=== PATIENT | female | born 1980 | race Caucasian/White ===

== ENCOUNTER 2019-07-30 08:31 | Emergency (ER) | payer OTHER, SELFPAY ==
--- NOTE | ~2019-07-30 | XR_ITS ---
EXAMINATION: XR chest 2V DATE: 07/30/2019 08:54 INDICATION: Cough and fever. TECHNIQUE: Frontal and lateral views of the chest were obtained. COMPARISON: Chest 2 views 03/07/2015 FINDINGS: There are airspace opacities in left lower lobe, consistent with pneumonia. No pleural effu deon or pneumothorax. The heart size is normal. IMPRESSION: 1. Left lower lobe pneumonia. Reviewed, dictated and finalized at location A.
[2019-07-30 08:43] VITALS: BP 115/78; PULSE 91; RESP 18; TEMP 37; O2SAT 95
--- NOTE | 2019-07-30 09:01 | ED.URI ---
HPI - URI/Sore Throat General Chief Complaint: Upper Respiratory Infection Stated Complaint: ough/fever Time Seen by Provider: 07/30/19 08:46 Source: patient and RN notes reviewed Mode of arrival: ambulatory Limitations: no limitations History of Present Illness HPI Narrative: Patient presents today with a 12-day history of productive cough, shortness of breath with exertion, fever up to 101, sweats. Cough has been worsening since onset. Patient was tested for COVID-19 2 days ago and was negative. Her PCP told her that she likely had a virus and needed to wait it out. Denies cough, rhinorrhea, sore throat, ear pain, nausea, vomiting, headache. Denies any history of asthma or COPD. She has been taking Tylenol and ibuprofen with relief. She is a non-smoker. MD elicited complaint: fever and cough Related Data Home Medications Medication Instructions Recorded Confirmed sertraline [Zoloft] 75 mg PO DAILY 07/30/19 07/30/19 Allergies Allergy/AdvReac Type Severity Reaction Status Date / Time No Known Allergies Allergy Unverified 07/30/19 08:46 Review of Systems Review of Systems: Narrative: CONSTITUTIONAL: Denies body aches, chills. + Fever, sweats EYES: Denies visual changes, redness, or discharge. ENT: Denies rhinorrhea, congestion, sore throat, or otalgia. CARDIOVASCULAR: Denies chest pain, palpitations, or edema. RESPIRATORY: + Cough, shortness of breath with exertion GASTROINTESTINAL: Denies abdominal pain, nausea, vomiting, or diarrhea. GENITOURINARY: Denies dysuria or hematuria. SKIN: Denies rash, itching, or wounds. MUSCULOSKELETAL: Denies back pain, joint pain, or myalgia. NEUROLOGIC: Denies headache, numbness, tingling, or weakness. PSYCH: Denies depression or anxiety. [facility] Past Medical History Medical History (Updated 07/30/19 @ 09:05 by Belkys Bhatt, [facility], ) Anxiety Family History Family History (Updated 09/12/15 @ 23:21 by DOCTOR UNKNOWN) Mother Patient's mother is in good health Father Patient's father is in good health Cerebrovascular accident Family history of diabetes mellitus in first degree relative Hypertension Family history of transient ischemic attacks Sibling Patient's sister is in good health Grandparent Hypertension Diabetes mellitus Social History Social History Smoking status: Never smoker Alcohol intake: current Gender identity (if verbalized by the patient): Female Comments At time of signature, I have reviewed and agree with nursing past medical, surgical, social and family history unless otherwise noted. Please see nursing chart for further information. There is no relevant family history pertinent to the presenting complaint Exam Narrative: Exam Narrative: GENERAL: Well-appearing, well-nourished, and in no acute distress. HEAD: Normocephalic, atraumatic. EYES: EOMI. No redness or drainage. Conjunctivae normal. ENT: Mucous membranes pink and moist. Nares clear. No rhinorrhea. TMs normal bilaterally. Throat normal. Uvula midline. NECK: Normal AROM. Supple. No lymphadenopathy. CHEST: No respiratory distress. Crackles in the left lung. Diminished in the left lower lobe. Expiratory wheeze in the left lower lobe. HEART: Regular rate and rhythm. No murmur appreciated. Normal peripheral pulses. EXTREMITIES: Normal range of motion. No edema. SKIN: Warm, dry, no rash. Capillary refill normal. Normal skin turgor. NEURO: No focal deficits. Alert and oriented x3. Gait steady. PSYCH: Normal affect. No signs of depression or anxiety. Course Vital Signs Vital signs: Vital Signs Temperature 98.6 F 07/30/19 08:43 Pulse Rate 91 07/30/19 08:43 Respiratory Rate 18 07/30/19 08:43 Blood Pressure 115/78 07/30/19 08:43 Pulse Oximetry 95 07/30/19 08:43 Temperature 98.6 F 07/30/19 08:43 Pulse Rate 91 07/30/19 08:43 Respiratory Rate 18 07/30/19 08:43 Blood Pressure 115/78 07/30/19 08:43 Pulse Oximetry 95 06
== END 2019-07-30 09:12 | disposition home or self-care (01) ==
PROVIDERS: Emergency Provider Nurse Practitioner; PCP Family Medicine
DX: R05 Cough (principal); J18.9 Pneumonia, unspecified organism
CPT/HCPCS: 71046; 99213; G0463

== ENCOUNTER 2019-08-20 08:39 | Outpatient (CLI) | payer OTHER, SELFPAY ==
--- NOTE | ~2019-08-20 | XR_ITS ---
XR chest 2V DATE: 08/20/2019 09:06 INDICATION: Pneumonia TECHNIQUE: PA and lateral views COMPARISON: 07/29/2021 view chest FINDINGS: There is diminished but incompletely resolved left lower lobe infiltrate since 07/30/2019. Mild discoid atelectasis in the right lower lung. The remaining lung uriarte are clear. No pleural effusion or pulmonary vascular congestion or pneumoth orax. No hilar or mediastinal enlargement. Normal heart size. Mild levoscoliosis of the upper thoracic spine. IMPRESSION: Improvement but incomplete resolution of left lower lobe infiltrate since 07/30/2019 Reviewed, dictated and finalized at location B.
== END 2019-08-20 08:40 | disposition home or self-care (01) ==
LOC: ANHIMG 08:44
PROVIDERS: PCP Family Medicine; Visit Provider Family Medicine
DX: J18.9 Pneumonia, unspecified organism (principal); R91.8 Other nonspecific abnormal finding of lung field
CPT/HCPCS: 71046

== ENCOUNTER 2019-09-06 08:11 | Outpatient (CLI) | payer OTHER, SELFPAY ==
--- NOTE | ~2019-09-06 | XR_ITS ---
XR chest 2V DATE: 09/06/2019 08:22 INDICATION: Pneumonia follow-up TECHNIQUE: PA and lateral views COMPARISON: 08/20/2019 2 view chest FINDINGS: There is interval clearance of left lower lobe infiltrate since 08/20/2019 consistent with re solution of pneumonia. No pulmonary infiltrate or consolidation. No hilar or mediastinal enlargement. No pleural effusion or pulmonary vascular congestion or pneumoth orax. Normal heart size. Mild levoscoliosis of the upper thoracic spine and minimal dextroscoliosis of the lower thoracic spin e. IMPRESSION: Resolution of left lower lobe infiltrate; no active cardiopulmonary disease Reviewed, dictated and finalized at location B.
== END 2019-09-06 08:12 | disposition home or self-care (01) ==
PROVIDERS: PCP Family Medicine; Visit Provider Physician Assistant
DX: J18.9 Pneumonia, unspecified organism (principal)
CPT/HCPCS: 71046

== ENCOUNTER 2020-04-17 13:29 | Outpatient (CLI) | payer OTHER, SELFPAY | END 2020-04-17 13:30 | disposition home or self-care (01) | LOC: ANHCOVIDVC 13:29 | PROVIDERS: PCP Family Medicine | DX: Z23 Encounter for immunization (principal) | CPT/HCPCS: 0001A; 91300 ==

== ENCOUNTER 2020-05-08 13:28 | Outpatient (CLI) | payer OTHER, SELFPAY | END 2020-05-08 13:29 | disposition home or self-care (01) | LOC: ANHCOVIDVC 13:28 | PROVIDERS: PCP Family Medicine | DX: Z23 Encounter for immunization (principal) | CPT/HCPCS: 0002A; 91300 ==

== ENCOUNTER → 2021-06-19 12:34 | Outpatient (CLI) | payer OTHER, SELFPAY ==
--- NOTE | ~2021-06-19 | MM_ITS ---
EXAMINATION: MM screening jacy BI w swapna HISTORY: Screening mammogram TECHNIQUE: Craniocaudal and mediolateral oblique 3-D tomosynthesis images were obtained and synthetic 2-D images were generated. CAD analysis was submitted and interpreted. COMPARISON: No prior mammogram is available for comparison at this institution. BREAST PARENCHYMAL COMPOSITION: The breasts are extremely dense, which lowers the sensitivity of mamm ography. FINDINGS: There is no evidence of suspicious mass, calcification, or architectural distortion to sugg est malignancy in either breast. There has been no suspicious interval change. IMPRESSION: 1. No mammographic evidence of malignancy. 2. Recommend routine screening mammography in one year. BI-RADS Category 1: Negative Reviewed, dictated and finalized at location A.
== END ==
PROVIDERS: PCP Surgery Plastic and Reconstructive Surgery; Visit Provider Nurse Practitioner
DX: Z12.31 Encounter for screening mammogram for malignant neoplasm of breast (principal)
CPT/HCPCS: 77063; 77067

== ENCOUNTER 2021-09-22 00:03 | Day surgery (SDC) | payer OTHER, SELFPAY ==
[2021-09-14 16:35] VITALS: BMI 25.0
--- NOTE | 2021-09-14 16:58 | PC.NURSE ---
Report to the Outpatient Waiting Room, entrance under the green pavilion located off [facility], at time 0600 on date 09/22/21. OR Time: 0730. - You and your visitor will be asked a series of questions to screen for COVID 19 for your protection. - Only one visitor is allowed at this time. - The patient visitor is requested to leave or wait in car when not with patient. - A mask is required within the hospital. Patients may have clear liquids (water, carbonated beverages, clear teas, apple juice) until 3 hours prior to surgery with a maximum of 20 ounces. - No food from midnight until time of surgery Take the following medications with a SIP of water the morning of surgery: Escitalopram Medications to discontinue per physician N/A Date to take last dose N/A Please no make-up, nail syriac, hairspray, perfume, deodorant, or body powder the day of surgery. No jewelry (including any body piercings) or valuables the day of surgery, leave them at home. Please take a shower or bath the night before, or the morning of, surgery with an antibacterial soap. Wear comfortable, loose fitting clothing. - Jewelry must be removed prior to entering the operating room. Rings and piercings that are not removed may be cut off. - The hospital will not accept responsibility for valuables. - Please leave all valuables, including medications, at home the day of surgery. If you are going home after surgery, a licensed tour driver must drive you home. - NO public transportation without another adult. - We recommend that an adult stay with you for 24 hours following discharge. - We also recommend that you do not drive, make important decision, drink alcoholic beverages, or take any drugs that were not prescribed by your health care provider for at least 24 hours after your discharge time. Follow any additional instructions given to you from your surgeon. If you or anyone in your household have experienced Covid symptoms in the past week, please notify your surgeon or the nurse liaison at the phone number below for possible testing. Telephone instructions given to patient and asked if any additional questions and then verbalized understanding. Patient advised to call surgeon office or pre surgery nurse liaison [phone] if any additional questions.
[2021-09-22] VITALS (9 sets, daily range): BP systolic 112–138; BP diastolic 60–80; PULSE 73–98; RESP 14–20; TEMP 36.3; O2SAT 97–100
--- NOTE | 2021-09-22 06:23 | W.PM.PROC2 ---
Procedure Note - Detailed Date of Procedure 09/22/21 Pre-op Diagnosis Bilateral Micromastia Post-op Diagnosis Same Procedure Performed Bilateral augmentation mammaplasty Surgeon Anthony Vazquez MD Anesthesia General Findings Bilateral paula saline implants 450 cc filled to 475 Right - REF# [id number] SN [id number] Left - REF# [id number] SN [id number] Description of Procedure She is here today for bilateral breast augmentation. Previously and again today the risks, benefits, alternatives were discussed in extensive detail. I wanted her to be very realistic about the risks involved as well as expectations. We discussed aftercare and what to monitor for. Made sure answered all of her questions to her satisfaction today and consent was obtained. Marked in the preoperative holding area with their verification. The patient was taken to the operating room placed supine on the operating table. Anesthesia was provided by anesthesiology. A surgical time-out was taken. We cleansed the skin and 1% lidocaine and 0.25% Marcaine with epinephrine was used anesthetize as a field block. She was prepped and draped in a standard sterile fashion. Tegaderm nipple Hay were placed. A 15 blade used to make an incision along the inframammary fold. Dissection was continued at 45 degree angle until the chest wall as identified. I incised the pectoralis major along its inferior border and completely released the inferior border leaving the medial border intact. I created a subpectoral pocket in the appropriate dimensions based on our preoperative planning for the implant. I then copiously irrigated with saline solution and verified a strict hemostasis. Next the Betadine containing solution was utilized to irrigate the pocket. I washed my gloves with the triple antibiotic and Betadine solution. We washed the implant immediately upon opening it with this solution and only opened it when we needed it. The saline implants was prepared on the back table removing all air. A fill kit was utilized. It was introduced into the pocked and filled will fill kit. Once at fill volume the fill kit was removed and I verified the valve seated correctly. Having verified positioning of the implant this was closed using 2-0 Vicryl followed by 3-0 Monocryl in a running subcuticular 4-0 Monocryl followed by tissue glue. Fluffs and surgical bra were placed. Patient was awoke and taken to PACU without difficulty. All instrument sponge counts were correct at the end of the case. Estimated Blood Loss 25 Drains No Packing No Pathology None sent Complications No immediate complications Condition Stable Disposition PACU
[2021-09-22] MEDS: LACTATED RINGERS 1,000 ML 30 ML IV CONT ×2 (06:34→08:36)
--- NOTE | 2021-09-22 07:03 | WPDHPUPDATE1 ---
History and Physical Update Update Date/Time: 09/22/21 07:03 History and Physical has been reviewed, including an updated exam of the patient. There are NO changes in the patient's condition. Risks, benefits, and alternatives have been discussed and questions answered. Patient agrees to proceed with procedure.
--- NOTE | 2021-09-22 07:04 | WPDANESEPPF ---
Anes - Initial Pre Proc Eval Procedure: Operation Date: 09/22/21 07:30 Proposed Procedures p Bilateral Breast Augmentation - Anthony Vazquez MD Date/Time: 09/22/21 07:04 Surgeon: Anthony Vazquez MD Pre Op Diagnosis: Bilateral Micromastia Patient Data Age: 41 Gender: F Height: 1.68 m Weight: 69.7 kg Last Vital Signs Temp 97.3 F L 09/22/21 06:27 Pulse 73 09/22/21 06:27 Resp 16 09/22/21 06:27 BP 112/68 09/22/21 06:27 Pulse Ox 100 09/22/21 06:27 O2 Del Method Room Air 09/22/21 06:27 Allergies Allergy/AdvReac Type Severity Reaction Status Date / Time No Known Allergies Allergy Verified 09/14/21 16:33 Home Medications Medication Instructions Recorded Confirmed Type escitalopram oxalate 10 mg tablet 10 mg PO DAILY 06/16/20 09/22/21 History norgestimate 0.18 mg/0.215 mg/0.25 1 tablet PO DAILY 01/07/21 09/14/21 History mg-ethinyl estradiol 25 mcg tablet docusate sodium 100 mg capsule 100 mg PO DAILY #14 caps 09/02/21 09/22/21 Rx (Colace) oxycodone-acetaminophen 5 mg-325 1 tablet PO Q6H PRN pain #30 tabs 09/03/21 09/14/21 Rx mg tablet (Percocet) tizanidine 4 mg capsule 4 mg PO TID PRN muscle spasticity 09/07/21 09/14/21 Rx #30 caps Patient hx anesthesia problems: none Family hx anesthesia problems: none Results Review: All pre-operative results and documents have been reviewed as part of the pre-operative evaluation. [facility] Past Medical History Medical History Anxiety Anxiety Bunion of great toe of left foot Chronic neck pain Surgical History Surgical History History of bunionectomy Family History Family History Mother Patient's mother is in good health Father Patient's father is in good health Cerebrovascular accident Family history of diabetes mellitus in first degree relative Hypertension Family history of transient ischemic attacks Sibling Patient's sister is in good health Grandparent Hypertension Diabetes mellitus Social History Social History Smoking status: Never smoker Second hand tobacco smoke exposure: No Alcohol intake: current Drinks per week: 4 Substance use: current Substance use type: marijuana Other substance usage details: MARIJUANA EDIBLES 2X/WEEK Living arrangements: with family Gender identity (if verbalized by the patient): Female Spiritual care concerns: No Anes - Eval Final PreProcedure Day of Procedure 09/22/21 07:04 Patient weight: normal Heart: regular rate and rhythm Lungs: clear to auscultation Airway: Mallampati scale class II Neurological: alert and oriented Last oral intake: >/= 8 hours ASA classification: II Emergent: no Anesthetic plan: proceed Anesthesia type and monitoring: general LMA and standard monitoring Results Review: All pre-operative results and documents have been reviewed as part of the pre-operative evaluation. Informed Consent: The patient's anesthetic plan and its attendant risks and benefits were discussed with the patient/family/POA. Questions were solicited and answers provided to the satisfaction of the patient/family/POA.
[2021-09-22] MEDS: ceFAZolin 2 GM/D5W 50 ML 2 GM/50 ML BAG IVPB (07:22)
[2021-09-22] MEDS: BUPIVACAINE HCL 0.25% PF 30 ML VIAL INFILTRATE (07:32)
[2021-09-22] MEDS: TRANEXAMIC ACID 1,000MG/ISO100 1,000 MG/100 ML BAG 200 MG IVPB (07:33)
[2021-09-22] MEDS: LIDO 1%/EPINEPHRINE 1:100,000 50 ML VIAL INFILTRATE (07:33)
[2021-09-22] MEDS: fentaNYL CITRATE INJ (*CRX) 100 MCG/2 ML VIAL 25 MCG IV PUSH ×8 (08:37→09:13)
[2021-09-22] MEDS: oxyCODONE HCL (*CRX) 5 MG TAB IR PO (09:34)
== END 2021-09-22 10:20 | disposition home or self-care (01) ==
PROVIDERS: PCP Family Medicine; Visit Provider Surgery Plastic and Reconstructive Surgery
PROC: (CPT 19325; principal; 2021-09-22 07:30)
DX: Z41.1 Encounter for cosmetic surgery (principal); N64.82 Hypoplasia of breast; F41.9 Anxiety disorder, unspecified; F12.90 Cannabis use, unspecified, uncomplicated
CPT/HCPCS: 19325; A9270; J0690; J1100; J1580; J2250; J2405; J2704; J3010; J7120

== ENCOUNTER 2022-05-19 15:46 | Emergency (ER) | payer OTHER, SELFPAY ==
--- NOTE | 2022-05-19 15:47 | ED.URI ---
HPI - URI/Sore Throat General Chief Complaint: Upper Respiratory Infection Stated Complaint: uri Time Seen by Provider: 05/19/22 15:46 Source: patient Mode of arrival: ambulatory Limitations: no limitations History of Present Illness HPI Narrative: Alma is a 41-year-old female patient presenting to clinic today with complaints of productive cough, mild shortness of breath, nasal congestion, and left ear pain x1 week. She reports no known fever or chills. Is bringing up some yellowish green phlegm with coughing MD elicited complaint: sore throat and nasal congestion Related Data Home Medications Medication Instructions Recorded Confirmed escitalopram oxalate 10 mg tablet 10 mg PO DAILY 06/16/20 09/22/21 Nasacort 05/19/22 cholecalciferol (vitamin D3) 1,250 1,250 mcg PO WEEKLY 05/19/22 05/19/22 mcg (50,000 unit) tablet Allergies Allergy/AdvReac Type Severity Reaction Status Date / Time No Known Allergies Allergy Verified 05/19/22 15:54 Review of Systems Review of Systems: Pertinent positives per HPI. Patient denies any fever, chills, rash, headache, visual changes, dizziness, chest pain, palpitations, nausea, vomiting, diarrhea, constipation, abdominal pain, or any urinary issues. [facility] Past Medical History Medical History Anxiety Anxiety Bunion of great toe of left foot Chronic neck pain Surgical History Surgical History History of bunionectomy Family History Family History Mother Patient's mother is in good health Father Patient's father is in good health Cerebrovascular accident Family history of diabetes mellitus in first degree relative Hypertension Family history of transient ischemic attacks Sibling Patient's sister is in good health Grandparent Hypertension Diabetes mellitus Social History Social History Smoking status: Never smoker Second hand tobacco smoke exposure: No Alcohol intake: current Drinks per week: 4 Substance use: current Substance use type: marijuana Other substance usage details: MARIJUANA EDIBLES 2X/WEEK Living arrangements: with family Gender identity (if verbalized by the patient): Female Spiritual care concerns: No Comments At the time of my signature, I reviewed and agree with the nursing past medical, surgical, social, and family history. There is no relevant family history pertinent to the patient complaint. Exam Narrative: General: Well-developed, well nourished, in no apparent distress Head: Normocephalic, atraumatic Eyes: Pupils equally round and reactive to light bilaterally, EOM intact, sclera and conjunctive clear, no discharge, lids normal Ears: Right tMs intact and clear, left TM intact, mild bulging, dull, ear canals clear, no drainage, grossly hearing normal. Nose: Nares patent, clear nasal discharge, no inflammation, no sinus tenderness. Mouth: Oral pharynx without lesions or masses, good dentition, MMM. Postnasal drip Neck: Supple, trachea midline, no enlargement of anterior or posterior cervical nodes, no thyroid masses or goiter palpable. Cardio: Regular rate and rhythm, s1 and s2 normal, no murmur appreciated. Resp: Faint rhonchi in the lower bases of the posterior lung uriarte otherwise clear, no rales, wheezing or rubs Course Course Emergency Course: Portions of this record may have been created with voice recognition software. Level of Care: Express Care Visit Vital Signs Vital signs: Vital signs reviewed MDM - URI/Sore Throat MDM Narrative Medical decision making narrative: At the time of visit patient is resting comfortably on the exam table. Differential Diagnosis Differential diagnosis: Likely upper respiratory infection, otitis media, sinusitis,
[2022-05-19 15:53] VITALS: BP 121/74; PULSE 65; RESP 16; TEMP 37.1; O2SAT 99
[2022-05-19 15:55] VITALS: BP 121/74; PULSE 65; RESP 16; TEMP 37.1; O2SAT 99
== END 2022-05-19 16:03 | disposition home or self-care (01) ==
PROVIDERS: Emergency Provider Nurse Practitioner Family; PCP Family Medicine
DX: J40 Bronchitis, not specified as acute or chronic (principal); H69.92 Unspecified Eustachian tube disorder, left ear; F41.9 Anxiety disorder, unspecified
CPT/HCPCS: 99213; G0463

== ENCOUNTER 2022-06-19 19:06 | Emergency (ER) | payer OTHER, SELFPAY ==
--- NOTE | ~2022-06-19 | XR_ITS ---
EXAMINATION: XR finger 4th RT min 2V DATE: 06/19/2022 19:38 INDICATION: Right hand fourth digit squirrel bite. TECHNIQUE: 3 views of right hand fourth digit were obtained. COMPARISON: None. FINDINGS: Bone alignment is normal. No fracture. Joint spaces are normal. There is skin irregularity of the distal fourth digit. IMPRESSION: 1. No fracture or radiopaque foreign body. Reviewed, dictated and finalized at location A.
[2022-06-19 19:09] VITALS: BP 138/76; PULSE 87; RESP 15; TEMP 36.7; O2SAT 98
--- NOTE | 2022-06-19 19:25 | ED.GENADULT ---
HPI - General Adult General Chief complaint: Animal Bite Stated complaint: bit by squirrel Time Seen by Provider: 06/19/22 19:15 History of Present Illness HPI narrative: Patient is a 41-year-old female who presents the emergency department with chief complaint of squirrel bite. The patient reports that a squirrel was trapped in a net and she attempted to free the store all during the process the squirrel became agitated and bit her right ring finger. The patient reports that she has 2 puncture wounds that are open on the finger and the patient reports that the area is moderately painful the patient reports her last tetanus was about 9 years ago. Related Data Home Medications Medication Instructions Recorded Confirmed Nasacort 05/19/22 06/11/22 cholecalciferol (vitamin D3) 1,250 1,250 mcg PO WEEKLY 05/19/22 06/11/22 mcg (50,000 unit) tablet escitalopram oxalate 10 mg tablet 20 mg PO DAILY 06/11/22 06/11/22 Allergies Allergy/AdvReac Type Severity Reaction Status Date / Time No Known Allergies Allergy Verified 06/11/22 14:27 Review of Systems Review of Systems: A 10 system review of systems was completed on the patient and is negative except for what is stated in the HPI. Nursing and ancillary documentation was reviewed. [facility] Past Medical History Medical History Anxiety Anxiety Bunion of great toe of left foot Chronic neck pain Surgical History Surgical History History of bunionectomy Hx of breast augmentation Family History Family History Mother Patient's mother is in good health Father Patient's father is in good health Cerebrovascular accident Family history of diabetes mellitus in first degree relative Hypertension Family history of transient ischemic attacks Sibling Patient's sister is in good health Grandparent Hypertension Diabetes mellitus Social History Social History Smoking status: Never smoker Second hand tobacco smoke exposure: No Alcohol intake: current Drinks per week: 4 Substance use: current Substance use type: marijuana Other substance usage details: MARIJUANA EDIBLES 2X/WEEK Living arrangements: with family Gender identity (if verbalized by the patient): Female Spiritual care concerns: No Exam Narrative: GENERAL: Well-appearing, well-nourished, and in no acute distress. HEAD: Normocephalic, atraumatic. EYES: PERRLA and EOMI. ENT: Nares clear, no rhinorrhea or epistaxis. Mucous membranes moist. NECK: Supple. CHEST: Clear to auscultation. No respiratory distress. HEART: Regular rate and rhythm. No murmur heard. Normal peripheral pulses. ABDOMEN: Soft, nontender, nondistended, normal active bowel sounds. EXTREMITIES: Normal range of motion. No edema. Right ring finger there is 1/2 cm laceration at the medial aspect of the finger tip next to the nail there is 1/2 cm wound on the pad of the right ring finger. SKIN: Warm, dry, no rash. NEURO: No focal deficits. Alert and oriented x3. PSYCH: Normal mood and affect. Course Vital Signs Vital signs: Vital Signs Temperature 36.7 C 06/19/22 19:09 Pulse Rate 87 06/19/22 19:09 Respiratory Rate 15 06/19/22 19:09 Blood Pressure 138/76 06/19/22 19:09 Pulse Oximetry 98 06/19/22 19:09 Oxygen Delivery Room Air 06/19/22 19:09 Temperature 36.7 C 06/19/22 19:09 Pulse Rate 87 06/19/22 19:09 Respiratory Rate 15 06/19/22 19:09 Blood Pressure 138/76 06/19/22 19:09 Pulse Oximetry 98 06/19/22 19:09 Oxygen Delivery Room Air 06/19/22 19:09 Procedures Laceration Laceration 1: Date: 06/19/22 Time: 20:19 Site: hand (right ring finger pad) Size (cm): 0.5 Description: linear
[2022-06-19] MEDS: TETANUS,DIPHTHERIA,AC PERTUSSIS ADULT (0.5 ML) BOOSTRIX IM (19:43)
[2022-06-19] MEDS: AMOXICILLIN/CLAVULANATE K 875-125 MG TAB 1 TABLET PO (19:45)
[2022-06-19] MEDS: LIDOCAINE HCL 1% LOCAL INJ 10 ML VIAL 5 ML INFILTRATE (20:10)
== END 2022-06-19 21:00 | disposition home or self-care (01) ==
LOC: ANHED 20:28
PROVIDERS: Emergency Provider Emergency Medicine; PCP Family Medicine
DX: S61.254A Open bite of right ring finger without damage to nail, initial encounter (principal); F41.9 Anxiety disorder, unspecified; Z23 Encounter for immunization; W53.21XA Bitten by squirrel, initial encounter
CPT/HCPCS: 12001; 73140; 90471; 90715; 99283; A9270

== ENCOUNTER 2022-08-09 09:56 | Outpatient (CLI) | payer OTHER, SELFPAY ==
--- NOTE | ~2022-08-09 | MR_ITS ---
EXAMINATION: MR breast BI wo/w con INDICATION: Extremely dense breast tissue TECHNIQUE: Axial VIBRANT pre and dynamic post contrast, Sagittal VIBRANT post contrast, Axial T2 STIR ASSET COMPARISON: None CONTRAST: Multihance, 14 cc BREAST COMPOSITION: Extreme fibroglandular tissue FINDINGS: There are changes of interval bilateral saline breast augmentation. RIGHT BREAST: There is marked background parenchymal enhancement. There is a possible 1.1 x 0.5 cm ma ss in the subareolar aspect of the lower-outer breast at the 7:00 location. No pathologically enlarge d lymph nodes are identified. LEFT BREAST: There is marked background parenchymal enhancement. There are 1.2 x 0.5 cm of nonmass en hancement in the anterior/middle third of the upper breast at the 12:00 location 6 cm from the nipple . No pathologically enlarged lymph nodes are identified. IMPRESSION: 1. Possible right breast mass and nonmass enhancement of the left breast. Bilateral diagnostic mammog lesli and possible breast ultrasound are recommended. If no mammographic or sonographic correlate is id entified, follow-up breast MRI in six months is recommended. 2. Interval bilateral breast augmentation. BI-RADS category 3, probably benign findings. Reviewed, dictated and finalized at location A. IMPRESSION: 1. Possible right breast mass and nonmass enhancement of the left breast. Bilat eral diagnostic mammogram and possible breast ultrasound are recommended. If no mammographic or sonographic correlate is identified, follow-up breast MRI in s ix months is recommended. 2. Interval bilateral breast augmentation. BI-RADS category 3, probably benign findings.
== END 2022-08-09 09:57 | disposition home or self-care (01) ==
PROVIDERS: PCP Family Medicine; Visit Provider Obstetrics & Gynecology Gynecology
DX: R92.2 Inconclusive mammogram (principal)
CPT/HCPCS: 77049; A9577; C8908

== ENCOUNTER → 2022-09-24 09:17 | Outpatient (CLI) | payer OTHER, SELFPAY ==
--- NOTE | ~2022-09-24 | MMUS_ITS ---
EXAMINATION: MM diag jacy implant BI w swapna, US breast BI limited HISTORY: Possible right breast mass and nonmass enhancement of the left breast on breast MRI. TECHNIQUE: Craniocaudal, mediolateral, and mediolateral oblique 3-D tomosynthesis images with implant displacement of the breasts were performed and synthetic 2-D images were generated. Craniocaudal, m ediolateral oblique, and mediolateral views of the breasts without implant displacement were obtained using full field digital mammography. CAD analysis was submitted and interpreted. High resolution li mited bilateral breast ultrasound was performed. COMPARISON: 06/19/2021 BREAST PARENCHYMAL COMPOSITION: The breasts are extremely dense, which lowers the sensitivity of mamm ography. FINDINGS: MAMMOGRAPHIC FINDINGS: Right breast: No mammographic correlate is identified for the possible right breast mass described on breast MRI. No suspicious calcification or architectural distortion are identified. Left breast: No mammographic correlate is identified for the nonmass enhancement of the left breast d escribed on breast MRI. No suspicious calcification or architectural distortion are identified. ULTRASOUND: No sonographic correlate is identified for the reported abnormality in either breast on recent breast MRI. IMPRESSION: 1. No mammographic or sonographic correlate identified for the findings reported on recent breast MRI . 2. Recommend 6 month follow-up breast MRI. BI-RADS category 3, probably benign findings. Reviewed, dictated and finalized at location B. IMPRESSION: 1. No mammographic or sonographic correlate identified for the findings reporte d on recent breast MRI. 2. Recommend 6 month follow-up breast MRI. BI-RADS category 3, probably benign findings.
== END ==
PROVIDERS: PCP Family Medicine; Visit Provider Obstetrics & Gynecology Gynecology
DX: R92.8 Other abnormal and inconclusive findings on diagnostic imaging of breast (principal)
CPT/HCPCS: 76642; 77062; 77066; G0279

== ENCOUNTER 2023-04-12 09:35 | Outpatient (CLI) | payer OTHER, SELFPAY ==
--- NOTE | ~2023-04-12 | MR_ITS ---
MR breast BI wo/w con 04/12/2023 13:00 INSTRUMENT TECHNOLOGIST INDICATION: History of nonmasslike enhancement of the left breast TECHNIQUE: MRI of the breasts perform using standard protocol pre-and post IV contrast with the follo wing sequences: Axial T2 STIR, axial T1, axial vibrant T1 with fat suppression precontrast and multip hasic postcontrast. COMPARISON: Comparison to multiple prior studies sequentially, with oldest reviewed study dated 07/2021. FINDINGS: There are no abnormalities on the precontrast sequences. There are bilateral breast implant s. There is minimal background parenchymal enhancement. There are scattered nodular areas of nonmass- like enhancement, likely background enhancement. No evidence of signal abnormalities in the axillary or internal mammary node distributions. LEFT BREAST: No signal abnormalities on precontrast sequences. There is minimal background parenchym al enhancement. There are scattered nodular areas of nonmass-like enhancement, likely background enha ncement. No evidence of signal abnormalities in the axillary or internal mammary node distributions.] IMPRESSION: 1: Nodular bilateral nonmasslike enhancement, likely background enhancement. Recommendation: Recommend follow-up diagnostic bilateral mammogram and bilateral complete ultrasound. BI-RADS CATEGORY 0 - INCOMPLETE STUDY, NEED ADDITIONAL IMAGING EVALUATION. Reviewed, dictated and finalized at location A. RUMENT TECHNOLOGIST IMPRESSION: 1: Nodular bilateral nonmasslike enhancement, likely background enhancement. Recommendation: Recommend follow-up diagnostic bilateral mammogram and bilatera l complete ultrasound. BI-RADS CATEGORY 0 - INCOMPLETE STUDY, NEED ADDITIONAL IMAGING EVALUATION.
== END 2023-04-12 09:36 | disposition home or self-care (01) ==
PROVIDERS: PCP Family Medicine; Visit Provider Obstetrics & Gynecology Gynecology
DX: R92.2 Inconclusive mammogram (principal); Z98.82 Breast implant status
CPT/HCPCS: 77049; A9577; C8908

== ENCOUNTER 2023-06-15 13:15 | Outpatient (CLI) | payer OTHER, SELFPAY ==
--- NOTE | ~2023-06-15 | MMUS_ITS ---
EXAMINATION: MM diag jacy implant BI w swapna, US breast BI complete HISTORY: Bilateral nodular masslike enhancement seen on prior MRI examination. TECHNIQUE: Additional 3-D tomosynthesis images of the breasts were performed and synthetic 2-D images were generated. CAD analysis was submitted and interpreted. High resolution bilateral complete breas t ultrasound was performed. COMPARISON: Comparison to multiple prior studies sequentially, with oldest reviewed study dated 09/24 and 06/19/2021. BREAST PARENCHYMAL COMPOSITION: Dense: The breasts are heterogeneously dense, which may obscure small masses FINDINGS: MAMMOGRAPHIC FINDINGS: There are no suspicious masses, calcifications or architectural distortion in either breast to sugges t malignancy. ULTRASOUND: Complete bilateral US of all 4 quadrants of the breasts and retroareolar region was reviewed. Right breast: At 1:00, 5 cm from the nipple, there is an oval hypoechoic mass with echogenic hilum, p arallel orientation, no internal vascularity and no posterior features measuring 8 mm, likely benign. At 2:00, near the nipple there is a 3 mm cyst. At 6:00 near the nipple there is an oval hypoechoic 4 mm mass with low level internal echoes, no significant posterior features and marginal vascularity. Left breast: At 12:00 near the nipple there is a 3 mm cyst. At 8:00, 5 cm from the nipple, there is a 4 mm cyst. At 5:00 near the nipple there is an a hypoechoic structure, possibly cluster of microcyst s. No internal vascularity or posterior features. IMPRESSION: 1. Probable benign bilateral breast masses identified by ultrasound. No definite mammographic correla te. 2. Recommend 6 month follow-up limited bilateral breast ultrasound. BI-RADS category 3, probably benign findings. Reviewed, dictated and finalized at location B. IMPRESSION: 1. Probable benign bilateral breast masses identified by ultrasound. No definit e mammographic correlate. 2. Recommend 6 month follow-up limited bilateral breast ultrasound. BI-RADS category 3, probably benign findings.
== END 2023-06-15 13:16 | disposition home or self-care (01) ==
LOC: ANHIMG 13:17
PROVIDERS: PCP Family Medicine; Visit Provider Obstetrics & Gynecology Gynecology
DX: R92.8 Other abnormal and inconclusive findings on diagnostic imaging of breast (principal)
CPT/HCPCS: 76641; 77062; 77066; G0279

== ENCOUNTER 2024-07-02 12:13 | Outpatient (CLI) | payer OTHER, SELFPAY ==
--- NOTE | ~2024-07-02 | MMUS_ITS ---
EXAMINATION: MM scrn jacy implant BI w swapna, US breast BI limited. Limited bilateral breast ultrasound . HISTORY: Follow-up breast masses. TECHNIQUE: Craniocaudal and mediolateral oblique 3-D tomosynthesis images with implant displacement a nd synthetic 2-D images were generated. Craniocaudal and mediolateral oblique views of the breasts wi thout implant displacement were obtained using full field digital mammography. CAD analysis was submi tted and interpreted. High-resolution Limited bilateral breast ultrasound. COMPARISON: Comparison to multiple prior studies sequentially, with oldest reviewed study dated 07/2021. BREAST PARENCHYMAL COMPOSITION: Dense: The breasts are extremely dense, which lowers the sensitivity of mammography. FINDINGS: There is no evidence of suspicious mass, calcification, or architectural distortion to sugg est malignancy in either breast. There has been no suspicious interval change. Limited right breast ultrasound: At 1:00 near the nipple there is a 3 mm cyst. At 2:00 near the nippl e there is a 4 mm cyst. At 6:00 near the nipple there is a 2 mm cyst. Limited left breast ultrasound: At 12:00, near the nipple there is a 3 mm cyst. At 8:00, 5 cm from th e nipple there is a 3 mm cyst. No suspicious sonographic abnormality in either breast to suggest julee gnancy. IMPRESSION: 1. No evidence for malignancy in either breast. Benign findings. 2. Recommend routine screening mammography in one year. BI-RADS Category 2: Benign finding(s). Reviewed, dictated and finalized at location B. IMPRESSION: 1. No evidence for malignancy in either breast. Benign findings. 2. Recommend routine screening mammography in one year. BI-RADS Category 2: Benign finding(s).
--- OUTSIDE RECORDS SUMMARY | 2024-07-02 12:26 | XMS_ITS | Referral Summary ---
Author Organization [facility] Healthcare Address [address] [place] [address] Care Team Providers Care Bolt Threader Name Role Phone Naty Cummings MD Primary Care Provider [phone] Libby Klein DPM Unavailable [phone] Allergies No known active allergies Medications norgestimate-ethin yl estradioL (ORTHO TRI-CYCLEN LO) 0.18/0.215/0.25 mg-25 mcg per tabletIndications: Contraception Take 1 tablet by mouth daily Active escitalopram (LEXAPRO) 10 mg tabletIndications: Generalized Anxiety Disorder Take 10 mg by mouth daily Active Active Problems Problem Noted Date Diagnosed Date Acquired hallux valgus of right foot 12/31/2021 Overview (12/31/2021): Added automatically from request for surgery [id number] Acquired hallux valgus of left foot 10/06/2020 Overview (10/06/2020): Added automatically from request for surgery [id number] Social History Tobacco Use Types Packs/Day Years Used Date Smoking Tobacco: Never Smokeless Tobacco: Never Tobacco Cessation:Counseling Given: Not Answered AUDIT-C Answer Date Recorded Q1: How often do you have a drink containing alc ohol? 2-3 times a week 01/22/2022 Q2: How many drinks containi ng alcohol do you have on a typical day when you are drinking? 1 or 2 01/22/2022 Q3: How often do you have si x or more drinks on one occasion? Never 01/22/2022 Comments No Sex and Gender Information Value Date Recorded Sex Assigned at Not on file Legal Sex Female 10:20 AM CDT Gender Identity Not on file Sexual Orientation Not on file Last Filed Vital Signs Vital Sign Reading Time Taken Comments Blood Pressure 114/66 01/22/2022 2:25 PM DEPUTY PROBATION OFFICER Pulse 68 01/22/2022 2:25 PM DEPUTY PROBATION OFFICER Temperature 36.7 C (98.1 F) 01/22/2022 2:25 PM DEPUTY PROBATION OFFICER Respiratory Rate 18 01/22/2022 2:25 PM DEPUTY PROBATION OFFICER Oxygen Saturation 100% 01/22/2022 2:25 PM DEPUTY PROBATION OFFICER Inhaled Oxygen Concentration - - Weight 74 kg (163 lb 2.3 oz) 01/22/2022 10:03 AM DEPUTY PROBATION OFFICER Height 167.6 cm (5' 6 ) 01/22/2022 10:03 AM DEPUTY PROBATION OFFICER Body Mass Index 26.33 01/22/2022 10:03 AM DEPUTY PROBATION OFFICER Plan of Treatment Not on file Medical Devices Implanted Type Area Heading Maker Device Identifier Shelf Expiration Date Model / Serial / Lot [employer] [id number] Max Vpc 2.5mm 14mm Cannulated Headless Screw Bone Nonsterile - [id number] Implanted:Qty: 2 on 10/24/2020 by Libby Klein DPM at [facility] Left: Foot [employer] [id number] / / [employer] Max Vpc 2.5mm 14mm Cannulated Headless Screw Bone Nonsterile [id number] - [id number] - [id number] Implanted:Qty: 2 on 01/22/2022 by Libby Klein DPM at [facility] [employer] C1713 [id number] / [id number] / [employer] Max Vpc 2.5mm 16mm Cannulated Compression Headless Full Thread [id number] - [id number] - [id number] Implanted:Qty: 1 on 01/22/2022 by Libby Klein DPM at [facility] [employer] C1713 [id number] / [id number] / [place] [address] [facility] [id number] Advance Directives For more information, please contact: [phone] * Full Code (Latest Code Status on File) Date Activated Date Inactivated Comments 01/22/2022 1:57 PM 01/22/2022 6:47 PM Care Teams Bolt Threader Relationship Specialty Start Date End Date Naty Cummings MD PCP - General 10/22/20 Libby Klein DPM [address] [place] [id number] Consulting Physician Foot and Ankle Surg 10/24/20
--- OUTSIDE RECORDS SUMMARY | 2024-07-02 12:26 | XMS_ITS | Clinical Summary ---
Author Organization [facility] Healthcare Address [address] [place] [address] Care Team Providers Care Core Laying Machine Operator Name Role Phone Naty Cummings MD Primary Care Provider Libby Klein DPM Unavailable [phone] Allergies No known active allergies Medications norgestimate-ethin yl estradioL (ORTHO TRI-CYCLEN LO) 0.18/0.215/0.25 mg-25 mcg per tabletIndications: Contraception Take 1 tablet by mouth daily Active escitalopram (LEXAPRO) 10 mg tabletIndications: Generalized Anxiety Disorder Take 10 mg by mouth daily Active Active Problems Problem Noted Date Diagnosed Date Acquired hallux valgus of right foot 12/31/2021 Overview (12/31/2021): Added automatically from request for surgery [id number] Acquired hallux valgus of left foot 10/06/2020 Overview (10/06/2020): Added automatically from request for surgery [id number] Surgical History Surgery Date Site/Laterality Comments BUNIONECTOMY Left 2020 NASAL SEPTUM SURGERY AUGMENTATION MAMMOPLASTY Medical History Medical History Date Comments Anxiety Pneumonia Depression Social History Tobacco Use Types Packs/Day Years [...] on file Sexual Orientation Not on file Obstetrics History Last Filed Vital Signs Vital Sign Reading Time Taken Comments Blood Pressure 114/66 01/22/2022 2:25 PM INSPECTOR AND HAND PACKAGER Pulse 68 01/22/2022 2:25 PM INSPECTOR AND HAND PACKAGER Temperature 36.7 C (98.1 F) 01/22/2022 2:25 PM INSPECTOR AND HAND PACKAGER Respiratory Rate 18 01/22/2022 2:25 PM INSPECTOR AND HAND PACKAGER Oxygen Saturation 100% 01/22/2022 2:25 PM INSPECTOR AND HAND PACKAGER Inhaled Oxygen Concentration - - Weight 74 kg (163 lb 2.3 oz) 01/22/2022 10:03 AM INSPECTOR AND HAND PACKAGER Height 167.6 cm (5' 6 ) 01/22/2022 10:03 AM INSPECTOR AND HAND PACKAGER Body Mass Index 26.33 01/22/2022 10:03 AM INSPECTOR AND HAND PACKAGER Plan of Treatment Health Maintenance Due Date Last Done Comments Breast Cancer Screening-Mammogram 1981 Cervical Cancer Screening 1981 Depression Screening 1981 Hepatitis C Screening 1981 DTaP/Tdap/Td Vaccine (1 - Tdap) 1992 Varicella Vaccines (1 of 2 - 13+ 2-dose series) 1994 Hepatitis B Screening 09/14/1999 Regular Well Visit/Exam 18-64 09/14/1999 Covid-19 Vaccine (3 - 2023-2 5 season) 2023 05/08/2020, 04/17/2020 Influenza Vaccine (#1) 2023 HPV Vaccines Aged Out No longer eligi ble based on patient's age to complete this topic Pneumococcal vaccine <65 Aged Out No longer eligible based on patient's age to complete this topic Medical Devices Implanted Type Area Wallpaper Scraper Device Identifier Shelf Expiration Date Model / Serial / Lot [employer] [id number] Max Vpc 2.5mm 14mm Cannulated Headless Screw Bone Nonsterile - [id number] Implanted:Qty: 2 on 10/24/2020 by Libby Klein DPM at [facility] Left: Foot [employer] [id number] / / [employer] Max Vpc 2.5mm 14mm Cannulated Headless Screw Bone Nonsterile [id number] - [id number] - [id number] Implanted:Qty: 2 on 01/22/2022 by Libby Klein DPM at [facility] [employer] C1713 [id number] / [id number] / [employer] Max Vpc 2.5mm 16mm Cannulated Compression Headless Full Thread [id number] - [id number] - [id number] Implanted:Qty: 1 on 01/22/2022 by Libby Klein DPM at [facility] [employer] C1713 [id number] / [id number] / Insurance [facility] [id number] Advance Directives For more information, please contact: [phone] * Full Code (Latest Code Status on File) Date Activated Date Inactivated Comments 01/22/2022 1:57 PM 01/22/2022 6:47 PM Care Teams Core Laying Machine Operator Relationship Specialty Start Date End Date Naty Cummings MD PCP - General 10/22/20 Libby Klein DPM [address] [place], [place] [id number] Consulting Physician Foot and Ankle Surg 10/24/20
== END 2024-07-02 12:14 | disposition home or self-care (01) ==
LOC: ANHIMG 12:24
PROVIDERS: PCP Family Medicine; Visit Provider Nurse Practitioner
DX: Z12.31 Encounter for screening mammogram for malignant neoplasm of breast (principal)
CPT/HCPCS: 76642; 77063; 77067